=== PATIENT | female | born 1985 ===

== ENCOUNTER 2024-06-03 04:13 | Day surgery (SDC) | payer OTHER ==
[2024-06-02 09:26] VITALS: BMI 19.8
[2024-06-03] MEDS ORDERED: ONDANSETRON 4 MG/2 ML VIAL IVPUSH PRN (11:21)
[2024-06-03] MEDS ORDERED: oxyCODONE HCL 5 MG TABLET PO PRN ×2 (11:21)
[2024-06-03] MEDS ORDERED: LACTATED RINGERS SOLUTION 1,000 ML IV SCH (11:30)
[2024-06-03] MEDS ORDERED: BUPIVACAINE HCL/PF 0.25% (2.5MG/ML) 10 ML VIAL ONE (11:32)
[2024-06-03] MEDS ORDERED: LIDOCAINE HCL/PF 2% SDV 5ML VIAL ONE (11:34)
[2024-06-03] MEDS ORDERED: DEXAMETHASONE SOD PHOSPHATE 4 MG/1 ML VIAL ONE (11:34)
[2024-06-03] MEDS ORDERED: MIDAZOLAM HCL 2 MG/2 ML SINGLE DOSE VIAL ONE (11:36)
[2024-06-03] MEDS ORDERED: ROCURONIUM BROMIDE 50 MG/5 ML SYRINGE ONE (11:37)
[2024-06-03] MEDS ORDERED: PROPOFOL 20 ML ONE (11:37)
[2024-06-03] MEDS ORDERED: SEVOFLURANE 250 ML BTL ONE (11:38)
[2024-06-03] MEDS ORDERED: KETOROLAC TROMETHAMINE 30 MG/1 ML VIAL ONE (12:44)
[2024-06-03] MEDS: BUPIVACAINE HCL/PF 0.25% (2.5MG/ML) 10 ML VIAL IJ ONE ×2 (12:45)
[2024-06-03] MEDS ORDERED: NEOSTIGMINE METHYLSULFATE 0.5 MG/1 ML - 10 ML MDV ONE (13:01)
[2024-06-03] MEDS ORDERED: GLYCOPYRROLATE 0.2 MG/1 ML VIAL ONE (13:08)
[2024-06-03] MEDS ORDERED: ACETAMINOPHEN INJECTION 100 ML ONE (13:25)
[2024-06-03] MEDS: ACETAMINOPHEN 1000 MG/100 ML BAG IVPB ONE (13:29)
[2024-06-03 14:45] VITALS: RESP 16; TEMP 97.5
[2024-06-03 15:38] VITALS: BP 106/70; PULSE 81
== END 2024-06-03 15:45 | disposition home or self-care (01) ==
LOC: JASU-SURG 04:13
PROVIDERS: ATTEND Obstetrics & Gynecology
PROC: 0UT74ZZ Resection of Bilateral Fallopian Tubes, Percutaneous Endoscopic Approach (ICD-10-PCS; principal; 2024-06-03 11:00)
PROC: 0UPD4HZ Removal of Contraceptive Device from Uterus and Cervix, Percutaneous Endoscopic Approach (ICD-10-PCS; 2024-06-03 11:00)
DX: Z30.2 Encounter for sterilization (principal)
CPT/HCPCS: 86850; 86900; 86901; 88300-TC; 88305-TC; 94760; J0131